=== PATIENT | female | born 1985 | race Two or more races ===

== ENCOUNTER 2016-06-11 13:24 | Inpatient (IN) | payer BC ==
[2016-06-11 13:49] VITALS: BMI 26.5
[2016-06-11] MEDS ORDERED: LACTATED RINGERS 1,000 ML IV PRN (14:21)
[2016-06-11] MEDS ORDERED: OXYTOCIN IN NS 167 ML IV PRN ×2 (14:21→19:19)
--- NOTE | 2016-06-11 14:57 | PCMAN ---
OB Admission Note - History : 5 Term: 3 : 0 Abortions (S&E): 1 Livin EDC:: 06/24/16 Gestational Age (weeks): 38 Days (#/7): 1 Admit Cervical Dilation:: deferred Membrane Status: Ruptured Rupture (Date): 06/11/16 Rupture (Time): 08:00 Membranes Comment:: clear fluid, moderate amount Labor Onset (Date): 06/11/16 Contractions: Yes Contraction Frequency:: q5-8 mins, lasting 60-90 sec, palpating mild to moderate Heart Rate:: 130 (moderate variablity, pos accels, no decels) Status:: Cat 1 EFW:: 6.75lbs Summary of Course:: HPI: Simona presents to [facility] with gross rupture of membranes. She reports that ROM happened at 0800 today and that contractions began shortly after. Currently she reports mild contractions q7-8 minutes. She has a history of precipitous births after SROM, which is why she came in for eval at [facility]. She is supported by her , Mario and her mother. Course: Simona initiated care with CNMs at 18 weeks for a total of 9 visits. Dates by unsure LMP and 16 week US. 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 Normal verify results, normal 20wk US. 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 She reports active fetus and denies vaginal bleeding. - Physical Exam General: Afebrile Psych/Mental Status: Mood/Affect Appropriate, Judgment/Insight Intact Neurological: Grossly Intact, Alert, Oriented x 4 HEENT: Atraumatic Lungs: Clear to Auscultation Bilaterally, Normal Air Movement Cardiovascular: Regular Rate and Rhythm, Normal S1, Normal S2 Abdomen: Normal Bowel Sounds, Other (EFW 6.75lbs Terry's RADHA) Genitourinary: Normal Female Genitalia Rectal Exam: Deferred Extremities: Full ROM Skin: Normal Color, Warm, Dry, Intact - Problems (1) Rupture, membranes, premature Qualifiers: PROM onset of labor timing: unspecified duration between rupture of membranes and onset of labor PROM gestational age: full term Qualifier Code: (O42.92) Full-term premature rupture of membranes, unspecified as to length of time between rupture and onset of labor Status: Acute Code: O42.90Assessment/Plan: A: 31yo at 38w1d Latent Labor Rupture of membranes at 0800 GBS negative Fetus Cat 1, reactive NST P: Admit to [facility] in latent labor because of Hx of precipitous births after SROM. Saline lock for AMTSL IA per protocol Walk, positions, three sisters to promote optimal positioning Patient desires unmedicated , RN and CNM support as needed. Anticipate onset of active labor and
[2016-06-11] MEDS ORDERED: OXYTOCIN IN NS 500 ML IV ONE (15:07)
[2016-06-11] MEDS ORDERED: OXYTOCIN 10 UNITS/ML VIAL ONE (15:07)
[2016-06-11] MEDS ORDERED: MINERAL OIL 25 ML BOT ONE (15:07)
[2016-06-11] MEDS ORDERED: LIDOCAINE 1% (PRES FREE) 30 ML VIAL ONE (15:07)
[2016-06-11] MEDS ORDERED: LIDOCAINE Viscous 2% 15 ML UDCUP ONE (15:07)
[2016-06-11 17:03] LABS: HEMOGLOBIN 12.3 gm/l (12.0-16.0); MEAN CELL VOLUME 90.5 fl (81.0-99.0); MEAN CORPUSCULAR HEMOGLOBIN 30.1 pg (27.0-31.0); MEAN CORPUSCULAR HGB CONC 33.2 g/dl (33.0-37.0); RED CELL DISTRIBUTION WIDTH 12.9 % (11.5-14.5)
--- NOTE | 2016-06-11 17:41 | PDOC36 ---
Provider Note Subject: Labor Progress Note Note: S: Simona reports contractions coming closer together and that they feel stronger. She feels that with the side lying release, her right side was holding more tension than her left. O: SVE deferred ctx q 2-4 minutes, lasting 60-90 seconds, palpating mild to moderate Fetus BSL 140 increases auscultated, no decreases active movement palpated during side-lying release ruptured, clear fluid A: moving toward active labor contractions increasing in frequency Ruptured, GBS neg, afebrile reassurring status per IA P: Continue to walk, do lunges, use upright positions to facilitate onset of active labor IA per protocol PO hydration, light snacks Detailed report to be given to oncoming CNM Anticipate active labor and
[2016-06-11] MEDS ORDERED: BENZOCAINE/MENTHOL 60 APPLIC/BOT TP PRN (19:19)
[2016-06-11] MEDS ORDERED: DOCUSATE SODIUM 100 MG CAPSULE PO PRN (19:19)
[2016-06-11] MEDS ORDERED: CALCIUM CARBONATE 500 MG TAB.CHEW PO PRN (19:19)
[2016-06-11] MEDS ORDERED: LANOLIN 50 APPLIC/7G TUBE TP PRN (19:19)
[2016-06-11] MEDS ORDERED: HYDROCODONE/ACETAMINOPHEN 5/325MG TABLET PO PRN (19:19)
[2016-06-11] MEDS ORDERED: ACETAMINOPHEN 325 MG TABLET PO PRN (19:19)
[2016-06-11] MEDS: IBUPROFEN 800 MG TABLET PO SCH (19:54)
[2016-06-11] MEDS ORDERED: PROMETHAZINE HCL 25 MG/ML VIAL IM ONE (19:58)
--- NOTE | 2016-06-11 23:41 | PCMDEL ---
Delivery Note - Labor 1st stage (hr/min):: 2h10m 2nd stage (hr/min):: 0h20m 3rd stage (hr/min):: 0h8m Total (hr/min):: 2h38m Pushed (hr/min):: 0h20m - Delivery Delivery (Date): 06/11/16 Delivery (Time): 18:45 Gender: Female Weight: 7 lb 3 oz Presentation: Cephalic Position: OA Umbilical Cord: 3 Vessel Delayed Cord Clamping:: > 3 min 1 Minute Total: 9 5 Minute Total: 9 Placenta:: spontaneous, lakisha, intact EBL:: 150ml Perineum:: intact Suture:: none Anesthesia/Meds:: none Length ROM:: 10h25m Comments:: Simona labored with steady progress with spontaneous urge to push after laboring through day following SROM for clear fluid, gbs neg, remained afebrile, and appropriate for IA throughout labor. She pushed effectively in hands and knees on the bed to achieve of vigorous female infant over intact perineum. OA to RADHA, Apgars 9/9, FOB assisted with catching the baby. AMTSL with IV pit started. Delayed cord clamping at >3min after pulse stopped pulsing, cut by FOB. Spontaneous delivery of intact placenta, lakisha, 3VC, fundus firm mideline at U. Hemostasis achieved with QBL 150ml. Mom and baby stable.
[2016-06-12] MEDS: IBUPROFEN 800 MG TABLET PO SCH ×3 (04:00→16:34)
--- NOTE | 2016-06-12 09:31 | PDOC39B ---
Hospital Course: ADMIT DATE: 06/11/16 DISCHARGE DATE: 06/12/16 ADMISSION DIAGNOSES: Active Labor PROCEDURES: HISTORY OF PRESENT ILLNESS: 31 year old G5 T3 L3 at 38 weeks 1 days presenting with active labor. HOSPITAL COURSE: The patient arrived with ruptured membranes, progressed into active labor and had an uncomplicated vaginal . By day of discharge the patient is stable, well and ready to go home. - Physical Exam Vital Signs: Temp Pulse Resp BP Pulse Ox 98.0 F 72 16 109/68 06/12/16 08:41 06/12/16 08:41 06/12/16 08:41 06/12/16 08:41 General: Afebrile Psych/Mental Status: Mood/Affect Appropriate, Bonding Well Neurological: Grossly Intact Breast: Soft, Nipples Intact Fundus: Firm, Midline, Below Umbilicus Genitourinary: Normal Female Genitalia Lochia: Moderate Rectal Exam: Deferred Skin: Normal Color, Warm, Dry - Discharge Plan Condition: Stable Disposition: Home Additional Instructions: Midwifery 'After the ' handout given to patient. Discharge Medications: Will take OTC Ibuprofen.
[2016-06-12 15:19] VITALS: BP 125/83
== END 2016-06-12 20:45 | disposition home or self-care (01) | DRG 775 ==
LOC: FBC 13:24 → FBCOUT 13:24 → FBC 14:32
PROVIDERS: ADMIT Advanced Practice Midwife; ATTEND Advanced Practice Midwife
PROC: 10E0XZZ Delivery of Products of Conception, External Approach (ICD-10-PCS; principal; 2016-06-11)
DX: O42.92 Full-term premature rupture of membranes, unspecified as to length of time between rupture and onset of labor (principal); O09.43 Supervision of pregnancy with grand multiparity, third trimester; Z37.0 Single live birth; Z3A.38 38 weeks gestation of pregnancy